=== PATIENT | male | born 1960 | race Asian ===

== ENCOUNTER 2019-07-22 16:03 | Emergency (ER) | payer MEDICAID, OTHER ==
[2019-07-22] MEDS ORDERED: Bacitracin Oint 1 GM U/D Packet TOP ONE (16:08)
[2019-07-22] MEDS ORDERED: Lidocaine 1% 30 ML SDV INJECT ONE (16:08)
--- NOTE | 2019-07-22 16:31 | EDM.PDOC ---
ED HPI GENERAL MEDICAL PROBLEM - General Stated Complaint: FISHING HOOK, LEFT HAND IN LEFT PINKY FINGER Time Seen by Provider: 07/22/19 16:25 Source of Information: Reports: Patient (via family to interpret) History Limitations: Reports: No Limitations - History of Present Illness INITIAL COMMENTS - FREE TEXT/NARRATIVE: This 59 yo male patient was fishing when he got a fishing hook stuck in his left 5th finger near the knuckle. Onset: Today Duration: Minutes: Location: Reports: Upper Extremity, Left Quality: Reports: Ache, Dull Severity: Moderate Improves with: Reports: None Worsens with: Reports: None Context: Reports: Other Associated Symptoms: Reports: No Other Symptoms - Related Data Allergies Allergy/AdvReac Type Severity Reaction Status Date / Time No Known Allergies Allergy Verified 07/22/19 16:15 Home Meds: Home Meds . [No Known Home Meds] 07/22/19 [History] ED ROS GENERAL - Review of Systems Review Of Systems: Comprehensive ROS is negative, except as noted in HPI. ED EXAM, SKIN/RASH Exam: See Below Exam Limited By: No Limitations General Appearance: Alert, WD/WN, No Apparent Distress Eye Exam: Bilateral Eye: EOMI, PERRL Ears: Normal External Exam, Hearing Grossly Normal Nose: Normal Inspection, No Blood Throat/Mouth: Normal Inspection, Normal Lips, Normal Teeth Head: Atraumatic Neck: Full Range of Motion Respiratory/Chest: No Respiratory Distress, Lungs Clear, Normal Breath Sounds, No Accessory Muscle Use, Chest Non-Tender Cardiovascular: Normal Peripheral Pulses, Regular Rate, Rhythm (Male) Exam: Deferred Rectal (Males) Exam: Deferred Neurological: Alert, Oriented, CN II-XII Intact, Normal Cognition, Normal Gait Psychiatric: Normal Affect Skin: Warm, Dry, Normal Color Location, Skin: Upper Extremity, Left Characteristics: Other (fishing hook impaled in the 5th MCP) Lymphatic: No Adenopathy ED SKIN PROCEDURES - Foreign Body Removal Indication:: Fishing hook in the left 5th finger (near MCP) Consent Obtained:: Patient Performing Doctor:: Mac Msacorro Foreign Body Other Location Comment:: Fishing Hook in left 5th MCP Anesthesia Type: Local Findings:: Fishing hook removed after removing the tissue beneath the jevon Complications:: No Course - Vital Signs Last Recorded V/S: Last Vital Signs Temp 36.7 C 07/22/19 16:17 Pulse 75 07/22/19 16:17 Resp 18 07/22/19 16:17 BP 145/69 H 07/22/19 16:17 Pulse Ox 98 07/22/19 16:17 - Orders/Labs/Meds Meds: Medications Discontinued Medications Generic Name Dose Route Start Last Admin Trade Name Kevin PRN Reason Stop Dose Admin Bacitracin 1 dose 07/22/19 16:08 07/22/19 16:13 Bacitracin Oint 1 Gm TOP 07/22/19 16:09 1 dose ONETIME ONE Administration Lidocaine HCl 30 ml 07/22/19 16:08 07/22/19 16:13 Xylocaine-Mpf 1% INJECT 07/22/19 16:09 30 ml ONETIME ONE Administration Departure - Departure Time of Disposition: 16:28 Disposition: Home, Self-Care 01 Condition: Fair Clinical Impression: Fish hook injury of finger of left hand Qualifiers: Encounter type: initial encounter Qualified Code(s): S69.92XA - Unspecified injury of left wrist, hand and finger(s), initial encounter - Discharge Information *PRESCRIPTION DRUG MONITORING PROGRAM REVIEWED*: Not Applicable *COPY OF PRESCRIPTION DRUG MONITORING REPORT IN PATIENT NELSON: Not Applicable Instructions: Puncture Wound, [id number] Forms: ED Department Discharge Care Plan Goals: The patient was advised of the examination results during the visit. The fishing hook was removed by releasing the jevon using a scalpel. The patient was encouraged to keep the area clean and dry over the next 24 hours. If the patient has any additional symptoms or concerns, the patient should either return to the emergency department or visit her primary care facility. Sepsis Event Note - Evaluation Sepsis Screening Result: No Definite Risk - Focused Exam Vital Signs: Vital Signs Temp Pulse Resp BP Pulse Ox 07/22/19 16:17 36.7 C 75 18 145/69 H 98 Date Exam was Performed: 07/22/19 Time Exam was Performed: 16:44
== END 2019-07-22 16:39 | disposition home or self-care (01) ==
LOC: DL.ED 16:03
DX: S60.457A Superficial foreign body of left little finger, initial encounter (principal); W45.8XXA Other foreign body or object entering through skin, initial encounter
CPT/HCPCS: 10120; 99282; J2001